=== PATIENT | female | born 1965 | race Caucasian/White ===

== ENCOUNTER 2023-01-19 11:03 | Day surgery (SDC) | payer BC ==
[2023-01-17 16:30] VITALS: BMI 25.8
[~2023-01-19 11:03] MED LIST: Dexmedetomidine 200 MCG/2 ML VIAL ONE; Ketamine 50 MG/ML (10ML VIAL) ONE; fentaNYL PF 100 MCG/2 ML SYRINGE ONE
[2023-01-19] MEDS ORDERED: Heparin 5,000 UNITS/ML VIAL ONE (11:47)
[2023-01-19] MEDS ORDERED: Gentamicin 80 MG/2 ML VIAL ONE (11:48)
[2023-01-19] MEDS ORDERED: EPINEPHrine 1 MG/ML AMP ONE (11:48)
[2023-01-19] MEDS ORDERED: Vancomycin 1 GM VIAL ONE (11:48)
[2023-01-19] MEDS ORDERED: Bupivacaine 0.25% HCL 30 ML VIAL ONE (11:48)
[2023-01-19] MEDS ORDERED: Sodium Chloride 0.9% 100 ML ONE (14:32)
[2023-01-19] MEDS ORDERED: CEFAZOLIN 2 GM VIAL ONE (14:32)
[2023-01-19] MEDS ORDERED: ePHEDrine Sulfate 50 MG/10 ML VIAL ONE (14:35)
[2023-01-19] MEDS ORDERED: PROPOFOL 200 MG/20 ML VIAL ONE (14:35)
[2023-01-19] MEDS ORDERED: Ondansetron PF 4 MG/2 ML Vial ONE (14:35)
[2023-01-19] MEDS ORDERED: Dexamethasone 20 MG/5 ML VIAL ONE (14:35)
[2023-01-19] MEDS ORDERED: PHENYLEPHRINE-NS 100 MCG/ML 10 ML SYRINGE ONE (14:35)
[2023-01-19] MEDS ORDERED: Lidocaine 1% PF 5 ML VIAL ONE (14:35)
== END 2023-01-19 18:26 | disposition home or self-care (01) ==
LOC: SDC 11:03
PROVIDERS: ATTEND Plastic Surgery
PROC: 0HPU0JZ Removal of Synthetic Substitute from Left Breast, Open Approach (ICD-10-PCS; principal; 2023-01-19)
PROC: 0HBU0ZZ Excision of Left Breast, Open Approach (ICD-10-PCS; principal; 2023-01-19)
DX: N62 Hypertrophy of breast (principal); N65.0 Deformity of reconstructed breast; N60.12 Diffuse cystic mastopathy of left breast; Z98.82 Breast implant status; Z85.3 Personal history of malignant neoplasm of breast
CPT/HCPCS: 88305; J0171; J1100; J1580; J1644; J2405; J2704; J3370; J3490; S0020